=== PATIENT | male | born 1955 | race Caucasian/White ===

== ENCOUNTER 2019-12-19 10:05 | Day surgery (SDC) | payer BC ==
[~2019-12-19] VITALS: Ht 185.4 cm; Wt 101.1 kg
[2019-12-19 10:36] VITALS: BP 123/80; PULSE 98; TEMP 98.8
[2019-12-19] MEDS ORDERED: NORVASC 10MG10 MG PO (10:46)
[2019-12-19] MEDS ORDERED: LOTENSIN40 MG PO (10:46)
[2019-12-19] MEDS ORDERED: LIPITOR 40MG TA40 MG PO (10:47)
[2019-12-19] MEDS ORDERED: ALDACTONE 25MG25 M1 PO (10:48)
[2019-12-19] MEDS ORDERED: FLOMAX 0.40.4 MG/CAP PO (10:48)
[2019-12-19] MEDS ORDERED: ATIVAN 1MG T1 MG/TAB PO (10:49)
[2019-12-19] MEDS ORDERED: TRIAMCINOLONE A15 G3 TP (10:50)
[2019-12-19] MEDS ORDERED: ASPIRIN 81M81 MG/TA2 PO (10:51)
[2019-12-19] MEDS ORDERED: MULTI VITAMINS1 TAB PO (10:52)
[2019-12-19] MEDS ORDERED: OMEGA-3 1000 MG1 CAP PO (10:53)
[2019-12-19] MEDS ORDERED: VITAMIN C500 MG PO (10:54)
[2019-12-19] MEDS ORDERED: VITAMIN B COMPL1 SGL PO (10:54)
[2019-12-19] MEDS ORDERED: MAGNESIUM250 M1 PO (10:54)
[2019-12-19] MEDS ORDERED: THE MEDICINE S200 M2 PO (10:55)
[2019-12-19 12:20] VITALS: BP 99/73; PULSE 95; TEMP 97.5
--- NOTE | 2019-12-19 12:20 | NUR ---
Patient arrives to [facility] via cart, accompanied by Endo RN Dina. Bedside report is received. Patient is lethargic. He is easily aroused to voice. He ambulates with 2:1 assist and unsteady gait to the chair in the room. Monitoring is applied - VSS and WNL on room air. His spouse is at the bedside. He denies pain or nausea. Dr. Rodriguez already spoke with his about the results of his procedure. He is offered and receives water and crackers to eat.
[2019-12-19 12:35] VITALS: BP 117/88; PULSE 66
--- NOTE | 2019-12-19 12:35 | NUR ---
Patient is awake, alert, oriented. He is talking with his . Offered and receives more water and applesauce. Denies any pain or nausea.
[2019-12-19 12:50] VITALS: BP 123/88; PULSE 74
--- NOTE | 2019-12-19 13:10 | NUR ---
Patient has met discharge criteria. Discharge instructions are discussed with he and his . They deny any questions and verbalize understanding. PIV is removed with the catheter intact and hemostasis achieved. He changes to his clothing independently. He is escorted to the exit via wheelchair by staff and discharged to home with ride in private vehicle at 1310.
== END 2019-12-19 13:10 | disposition home or self-care (01) ==
LOC: SDCO 10:05
DX: Z12.11 Encounter for screening for malignant neoplasm of colon (principal); D12.5 Benign neoplasm of sigmoid colon; J44.9 Chronic obstructive pulmonary disease, unspecified; E78.5 Hyperlipidemia, unspecified; I10 Essential (primary) hypertension; E11.9 Type 2 diabetes mellitus without complications; M17.0 Bilateral primary osteoarthritis of knee; F32.9 Major depressive disorder, single episode, unspecified; F17.210 Nicotine dependence, cigarettes, uncomplicated; J30.2 Other seasonal allergic rhinitis; N40.0 Benign prostatic hyperplasia without lower urinary tract symptoms; N52.9 Male erectile dysfunction, unspecified; Z79.82 Long term (current) use of aspirin; Z79.52 Long term (current) use of systemic steroids; Z80.1 Family history of malignant neoplasm of trachea, bronchus and lung; Z82.3 Family history of stroke
CPT/HCPCS: J2704

== ENCOUNTER → 2020-09-28 | Outpatient (CLI) | payer BC ==
[~2020-09-28] MED LIST: ALDACTONE 25MG25 M1 PO; ASPIRIN 81M81 MG/TA2 PO; ATIVAN 1MG T1 MG/TAB PO; FLOMAX 0.40.4 MG/CAP PO; LIPITOR 40MG TA40 MG PO; LOTENSIN40 MG PO; MAGNESIUM250 M1 PO; MULTI VITAMINS1 TAB PO; NORVASC 10MG10 MG PO; OMEGA-3 1000 MG1 CAP PO; THE MEDICINE S200 M2 PO; TRIAMCINOLONE A15 G3 TP; VITAMIN B COMPL1 SGL PO; VITAMIN C500 MG PO
== END ==
LOC: COL.RAD 09:15
DX: F17.210 Nicotine dependence, cigarettes, uncomplicated (principal)

== ENCOUNTER 2022-05-17 07:22 | Observation (INO) | payer MEDICARE, BC ==
[2022-05-17] VITALS (14 sets, daily range): BP systolic 105–138; BP diastolic 56–86; PULSE 64–89; TEMP 98.1–98.5
[~2022-05-17] VITALS: Ht 182.9 cm; Wt 104.5 kg
[2022-05-17] MEDS ORDERED: TOPROL XL 50MG50 MG PO (07:37)
[2022-05-17 07:45] LABS: BASO % 0.5 % (0.0-2.0); EOS # 0.5 K/mm3 (0.0-0.7); EOS % 6.4 % (0.0-4.0); GRAN # 5.1 K/mm3 (1.4-6.5); GRAN % 61.9 % (42.2-75.2); HEMATOCRIT 42.3 % (42.0-52.0); HEMOGLOBIN 14.6 g/dl (13.5-18.0); LYMPH # 1.9 K/mm3 (1.2-3.4); LYMPH % 22.5 % (20.0-51.0); MEAN CELL VOLUME 90 fl (80.0-100.0); MEAN CORPUSCULAR HEMOGLOBIN 31 pg (27-31); MEAN CORPUSCULAR HGB CONC 35 g/dl (33.0-37.0); MONO # 0.7 K/mm3 (0.1-0.6); MONO % 8.3 % (1.7-9.3); PLATELET COUNT 162 K/mm3 (130-400); REDCELL DISTRIBUTION WIDTH-CV 12.6 % (11.5-14.5)
[2022-05-17 07:53] LABS: INR 1.1 (0.8-3.0); PROTHROMBIN TIME 12.1 SECONDS (9.7-12.8)
[2022-05-17 07:56] LABS: PARTIAL THROMBOPLASTIN TIME 32.4 SECONDS (26.0-37.0)
[2022-05-17 08:27] LABS: ALANINE AMINOTRANSFERASE 39 U/L (0-55); ALKALINE PHOSPHATASE 70 U/L (40-150); ANION GAP 12 mmol/L (7-16); AST,SGOT 41 U/L (5-34); BILIRUBIN,TOTAL 0.5 mg/dL (0.2-1.2); BLOOD UREA NITROGEN 14 mg/dL (8-26); CALCIUM 9.6 mg/dL (8.4-10.2); CARBON DIOXIDE 24 mmol/L (23-31); CHLORIDE 104 mmol/L (98-107); CREATININE, serum 0.75 mg/dL (0.72-1.25); GLUCOSE 102 mg/dL (70-99); POTASSIUM 4.1 mmol/L (3.5-4.5); SODIUM 140 mmol/L (136-145); TOTAL PROTEIN 7.3 gm/dL (6.2-8.1)
[2022-05-17 08:34] LABS: TROPONIN-I < 0.010 ng/mL (0.00-0.033)
--- NOTE | 2022-05-17 15:16 | NUR ---
SEE MERGE FOR ALL MEDICATION ADMINISTRATION TIMES, INTRA AND POST SEDATION ASSESMENTS
--- NOTE | 2022-05-17 20:00 | NUR ---
PT IN BED. RT RADIAL HEART CATH SITE DRY. REMOVED TR BAND AND APPLIED BANDAID. PT HAS IVF TO LEFT HAND, INFUSING WITHOUT PROBLEM. NOTED MILD EDEMA TO BLE. AMBULATES IN HALLWAY WITH STAFF.
[2022-05-17] MEDS ORDERED: PROVENTIL0.09 MG/A1 IH (21:07)
--- NOTE | 2022-05-17 21:37 | NUR ---
IV FLUIDS INT'D. MEDICATED WITH ATIVAN 1MG PO FOR ANXIETY.
[2022-05-18 04:14] VITALS: BP 111/81; PULSE 64; TEMP 98.5
--- NOTE | 2022-05-18 06:00 | NUR ---
PT TAKES AM MED WITHOUT PROBLEM. REPORTS RESTING WELL.
[2022-05-18 06:48] LABS: BASO % 0.6 % (0.0-2.0); EOS # 0.3 K/mm3 (0.0-0.7); GRAN % 58.5 % (42.2-75.2); HEMATOCRIT 40.8 % (42.0-52.0); HEMOGLOBIN 13.6 g/dl (13.5-18.0); LYMPH # 1.9 K/mm3 (1.2-3.4); LYMPH % 27.5 % (20.0-51.0); MEAN CELL VOLUME 93 fl (80.0-100.0); MEAN CORPUSCULAR HEMOGLOBIN 31 pg (27-31); MEAN CORPUSCULAR HGB CONC 33 g/dl (33.0-37.0); MEAN PLATELET VOLUME 11.4 fl (7.4-10.4); MONO # 0.6 K/mm3 (0.1-0.6); MONO % 8.3 % (1.7-9.3); PLATELET COUNT 165 K/mm3 (130-400); REDCELL DISTRIBUTION WIDTH-CV 12.5 % (11.5-14.5)
[2022-05-18 07:12] LABS: ALBUMIN 3.5 gm/dL (3.4-4.8); CALCIUM 9.1 mg/dL (8.4-10.2); CREATININE, serum 0.73 mg/dL (0.72-1.25); MAGNESIUM 1.8 mg/dL (1.6-2.6); PHOSPHOROUS 3.6 mg/dL (2.3-4.7); POTASSIUM 3.9 mmol/L (3.5-4.5)
[2022-05-18] MEDS ORDERED: TOPROL XL 50MG50 MG PO (07:38)
[2022-05-18] MEDS ORDERED: ALDACTONE 25MG25 M1 PO (07:39)
[2022-05-18 07:55] VITALS: BP 130/72; PULSE 70; TEMP 98.5
--- NOTE | 2022-05-18 08:00 | NUR ---
Pt doing well this morning, he is hopeful to get to go home and was wondering what the process was. Educated him on the discharge process
--- NOTE | 2022-05-18 09:37 | NUR ---
Initial visit; Patient thanked Alteration Worker for looking in on him, offering encouragement and prayer and keeping him in Alteration Worker's prayers.
[2022-05-18 09:49] VITALS: PULSE 70
[2022-05-18] MEDS ORDERED: JARDIANCE10 PO (10:02)
--- NOTE | 2022-05-18 10:29 | NUR ---
Cambering Machine Operator met with patient to discuss discharge planning. Patient lives in [place] with his , Mikala (ph#[phone]) and sees Dr. Rodriguez for primary care. Patient obtains medications from [facility] with no difficulties and does not use any DME. Patient is independent with ADLS and plans to return home at time of discharge. Patient does not have Advance Directives and is not interested in completing DPOA-[facility] at this time. Discharge Plan: Home
[2022-05-18 12:00] VITALS: BP 129/68; PULSE 52; TEMP 98.6
--- NOTE | 2022-05-18 12:00 | NUR ---
Pt does have orders for discharge. Exercise pulse ox completed and [facility] ORTIZ updated. Working on paper work
--- NOTE | 2022-05-18 12:36 | NUR ---
Reviewed discharge instructions with pt and his . All questions answered. INT removed from left hand. Notified telemetry and telemetry removed and taken to desk. Pt is waiting on his lunch at this time. Educated for them to notify nursing when he is ready to go so that we can escort him out
== END 2022-05-18 13:00 | disposition home or self-care (01) ==
LOC: COL.ER 07:22 → SURG 09:10
PROVIDERS: Family Medicine; ADMIT Internal Medicine
DX: I42.9 Cardiomyopathy, unspecified (principal); F17.210 Nicotine dependence, cigarettes, uncomplicated
CPT/HCPCS: C1769; G0378; J1644; J2250; J3010

== ENCOUNTER 2022-06-02 00:27 | Emergency (ER) | payer MEDICARE, BC ==
[~2022-06-02] VITALS: Ht 182.9 cm; Wt 102.3 kg
[~2022-06-02 00:27] MED LIST changes: +JARDIANCE10 PO; +PROVENTIL0.09 MG/A1 IH; +TOPROL XL 50MG50 MG PO
[2022-06-02 00:53] LABS: BASO % 0.6 % (0.0-2.0); EOS # 0.5 K/mm3 (0.0-0.7); EOS % 7.4 % (0.0-4.0); GRAN # 3.3 K/mm3 (1.4-6.5); GRAN % 48.5 % (42.2-75.2); HEMATOCRIT 44.4 % (42.0-52.0); HEMOGLOBIN 15.1 g/dl (13.5-18.0); LYMPH # 2.3 K/mm3 (1.2-3.4); LYMPH % 34.7 % (20.0-51.0); MEAN CELL VOLUME 91 fl (80.0-100.0); MEAN CORPUSCULAR HEMOGLOBIN 31 pg (27-31); MEAN CORPUSCULAR HGB CONC 34 g/dl (33.0-37.0); MEAN PLATELET VOLUME 10.2 fl (7.4-10.4); MONO # 0.6 K/mm3 (0.1-0.6); MONO % 8.7 % (1.7-9.3); PLATELET COUNT 197 K/mm3 (130-400); RED BLOOD COUNT 4.89 M/mm3 (4.20-5.60); REDCELL DISTRIBUTION WIDTH-CV 12.5 % (11.5-14.5)
[2022-06-02 01:13] LABS: ALANINE AMINOTRANSFERASE 32 U/L (0-55); ALBUMIN 4.1 gm/dL (3.4-4.8); ALKALINE PHOSPHATASE 65 U/L (40-150); ANION GAP 13 mmol/L (7-16); AST,SGOT 23 U/L (5-34); BILIRUBIN,TOTAL 0.8 mg/dL (0.2-1.2); BLOOD UREA NITROGEN 19 mg/dL (8-26); CALCIUM 9.8 mg/dL (8.4-10.2); CARBON DIOXIDE 24 mmol/L (23-31); CHLORIDE 104 mmol/L (98-107); CREATININE, serum 0.93 mg/dL (0.72-1.25); GLUCOSE 92 mg/dL (70-99); LIPASE 15 U/L (8-78); POTASSIUM 3.9 mmol/L (3.5-4.5); SODIUM 141 mmol/L (136-145); TOTAL PROTEIN 7.1 gm/dL (6.2-8.1)
[2022-06-02 01:19] LABS: TROPONIN-I < 0.010 ng/mL (0.00-0.033)
[2022-06-02 02:00] VITALS: BP 131/74; PULSE 65; TEMP 98.2
== END 2022-06-02 02:00 | disposition home or self-care (01) ==
LOC: COL.ER 00:27
PROVIDERS: Emergency Medicine
DX: I49.3 Ventricular premature depolarization (principal); R42 Dizziness and giddiness; R10.13 Epigastric pain; R79.0 Abnormal level of blood mineral; J81.1 Chronic pulmonary edema; F17.210 Nicotine dependence, cigarettes, uncomplicated